=== PATIENT | female | born 1990 | race Caucasian/White ===

== ENCOUNTER 2016-02-29 15:39 | Inpatient (IN) | END 2016-03-03 17:45 | disposition home or self-care (01) | DRG 766 | DX: O34.211 Maternal care for low transverse scar from previous cesarean delivery (principal); O99.820 Streptococcus B carrier state complicating pregnancy; Z30.2 Encounter for sterilization; Z3A.38 38 weeks gestation of pregnancy; Z37.0 Single live birth ==